=== PATIENT | female | born 1945 | race Caucasian/White ===

== ENCOUNTER 2016-09-28 16:19 | Emergency (ER) | payer OTHER ==
--- NOTE | 2016-09-28 17:00 | PROVIDER DOCUMENTATION ---
HPI-General Adult - General Chief Complaint: General Adult Stated Complaint: WEAKNESS/FALLING Time Seen by Provider: 09/28/16 16:53 Source: patient Allergies/Adverse Reactions: Patient Allergies Allergy/AdvReac Type Severity Reaction Status Date / Time codeine Allergy ANAPHYLAXIS Verified 08/17/15 23:41 hydromorphone HCl * Allergy ANAPHYLAXIS Verified 08/17/15 23:41 [From Dilaudid] Sulfa (Sulfonamide Allergy ANAPHYLAXIS Verified 08/17/15 23:41 Antibiotics) Home Medications: Home Medication List Medication Instructions Recorded Confirmed Last Taken Type Amitriptyline HCl 10 mg PO DAILY 08/18/15 09/28/16 09/27/16 History Ascorbate Calcium [Vitamin C] 500 mg PO DAILY 08/18/15 09/28/16 09/27/16 History Cyanocobalamin (Vitamin B-12) 5,000 mcg IV DIRECTED 08/18/15 09/28/16 History [B-12] Furosemide [Lasix] 80 mg PO DAILY 08/18/15 09/28/16 09/27/16 History Gabapentin 300 mg PO BID 08/18/15 09/28/16 09/27/16 History Levothyroxine [Synthroid] 50 microgm PO DAILY 08/18/15 09/28/16 09/27/16 History Lisinopril 20 mg PO DAILY 08/18/15 09/28/16 09/27/16 History Meloxicam [Mobic] 7.5 mg PO DAILY 08/18/15 09/28/16 09/27/16 History Methocarbamol [Robaxin] 500 mg pe PO BID 08/18/15 09/28/16 09/27/16 History Montelukast Sodium [Singulair] 10 mg PO DAILY 08/18/15 09/28/16 09/27/16 History Ondansetron HCl [Zofran] 4 mg PO DIRECTED 08/18/15 09/28/16 09/22/16 History Pravastatin Sodium 10 mg PO DAILY 08/18/15 09/28/16 09/27/16 History Propranolol HCl 40 mg PO DAILY 08/18/15 09/28/16 09/27/16 History Ranitidine HCl [Zantac 75] 150 mg PO DAILY 08/18/15 09/28/16 09/27/16 History Vitamin A 8,000 unit PO DAILY 08/18/15 09/28/16 09/27/16 History Cholecalciferol (Vit D3) [Vitamin 1,000 unit PO DAILY 09/28/16 09/28/16 History D3] Divalproex [Depakote] 250 mg PO DAILY 09/28/16 09/28/16 09/27/16 History Fenofibrate [Tricor] 48 mg PO QHS 09/28/16 09/28/16 09/27/16 History Hydrocodone/APAP 5 mg/325 mg 1 each PO TID 09/28/16 09/28/16 09/27/16 History [Crooks-5] Magnesium 200 mg PO DAILY 09/28/16 09/28/16 09/27/16 History Paroxetine HCl [Paxil] 30 mg PO DAILY 09/28/16 09/28/16 09/27/16 History Pramipexole Di-HCl [Mirapex] 0.125 mg PO QHS 09/28/16 09/28/16 09/27/16 History Ciprofloxacin HCl [Cipro] 500 mg PO BID #20 tablet 09/29/16 Unknown Rx - History of Present Illness -Gen Adult Nature of Presenting Problems: 71 y/o F c/o weakness x 1 day. States fell several times today. States fell on her butt, hit her head, and hurt her shoulders. Denies any dizziness. States floaters, double vision- has been going on for a couple of years. Denies any vomiting. States nauseated yesterday. States IVIG infusions for unknown illness from Dr. Monique for 16 months q 4 weeks. States GIRALDO in band like distribution today; has hx of migraines, and this feels similar. States mild shaking episodes; no hx of seizures. denies any LOC. Reports "episodes of weakness" in the past and 2-3 this week. Pt concerned she is on too many medications. Review of Systems - Adult - REVIEW OF SYSTEMS - ADULT Constitutional: reports: no symptoms reported. denies: chills, fever Eyes: reports: see HPI, double vision. denies: blurred vision Ears, Nose, Mouth & Throat: reports: no symptoms reported. denies: ear pain, nose pain Cardiovascular: reports: no symptoms reported. denies: chest pain, palpitations Respiratory: reports: no symptoms reported. denies: cough, shortness of breath Gastrointestinal: reports: see HPI, nausea. denies: abdominal pain, constipation, diarrhea, vomiting Genitourinary: reports: no symptoms reported. denies: dysuria, frequency Musculoskeletal: reports: no symptoms reported. denies: joint pain, joint swelling Integumentary: reports: no symptoms reported. denies: nail changes, rash Neurological: reports: see HPI, headache/migraines. denies: dizziness/vertigo, numbness, paresthesia, syncope Psychiatric: reports: no symptoms reported Endocrine: reports: no symptoms reported. denies: cold intolerance, heat intolerance Hematologic/Lymphatic: reports: no symptoms reported Allergic/Immunologic: reports: no symptoms reported All Other Systems: Reviewed and Negative Past History - Adult - PAST MEDICAL HISTORY-ADULT Review of Records: reports: Nursing Assessment Review, Medications Reviewed Major Childhood Illnesses: reports: denies history Cardiovascular: reports: denies history Genitourinary: reports: other (IG IV treatments) Musculoskeletal: reports: fibromyalgia Psychiatric: reports: depression Endocrine/Immune: reports: Diabetes - IMMUNIZATION STATUS Childhood Immunizations: See Nurse Assessment Flu Vaccine: See Nurse Assessment - SOCIAL HISTORY Smoking: denies Physical Exam-General - PHYSICAL EXAM-ADULT Initial Vital Signs Reviewed: Yes - CONSTITUTIONAL General Appearance: alert, mild distress - EYES Eyes: pink conjunctivae, other (false lens noted bilat eyes). negative: PERRL/ EOMI (pupillary defect of R eye; misshapen), EOM palsy (diffuculty with EOMIs) - HEAD, EARS, NOSE, MOUTH & THROAT HENMT: normocephalic/atraumatic - NECK Neck: supple, normal inspection, limited range of motion - RESPIRATORY Respiratory: lungs clear, normal breath sounds. negative: crackles, rales, rhonchi, stridor, wheezing - CARDIOVASCULAR Cardiovascular: regular rate, rhythm. negative: bradycardia, tachycardia - GASTROINTESTINAL (ABDOMEN) Abdominal Exam: normal bowel sounds, non tender, soft. negative: distended, guarding, rigid - MUSCULOSKELETAL Back Exam: normal inspection Extremity: normal capillary refill, tenderness (bilat trapezius). negative: normal gait (Pt unable to fully bear weight), abnormal NV exam, deformity, other (no tenderness noted to bilat shoulders) - SKIN Integumentary: normal color, normal turgor, warm/dry - NEUROLOGIC Neurologic: abnormal interventional nurse II-XII. negative: aphasia, facial droop, motor weakness, sensory deficit - PSYCHIATRIC Psych/Mental Status: normal mood/affect, normal thought content, normal thought process, oriented x 3 Progress - PLAN OF CARE/RESULTS Progress/Plan/Lab Results: Laboratory Tests 09/28/16 09/28/16 09/28/16 17:00 17:00 17:00 WBC 14.27 H RBC 3.69 L Hgb 11.6 L Hct 36.3 L MCV 98.4 MCH 31.4 H MCHC 32.0 L RDW Std Deviation 12.5 Plt Count 206 MPV 10.3 Immature Gran % (Auto) 0.1 Neut % (Auto) 85.2 H Lymph % (Auto) 9.1 L Polk % (Auto) 5.3 Eos % (Auto) 0.2 Baso % (Auto) 0.1 Immature Gran # (Auto) 0.02 Neut # (Auto) 12.14 H Lymph # (Auto) 1.30 Polk # (Auto) 0.76 H Eos # (Auto) 0.03 Baso # (Auto) 0.02 PT INR PTT (Actin FS) Specimen Type Sample Site pH pCO2 pO2 HCO3 Base Excess Oxyhemoglobin ABG O2 Sat (Calculated) ABG O2 Saturation ABG Carboxyhemoglobin ABG Methemoglobin Leonard Test A-a O2 Difference Total Hemoglobin Lactate Blood Gas Modality FiO2 % Sodium 140 Potassium 4.6 Chloride 104 Carbon Dioxide 21 L Anion Gap 15 BUN 39 H Creatinine 1.8 H Estimated GFR/1.73 m2 28 BUN/Creatinine Ratio 22 Glucose 153 H POC Glucose Calculated Osmolality 292 Calcium 8.9 Total Bilirubin 0.24 AST 24 ALT 17 Alkaline Phosphatase 61 Creatine Kinase 170 Troponin T Total Protein 6.7 Albumin 3.3 L Globulin 3.4 Albumin/Globulin Ratio 1.0 Urine Source Urine Color Urine Turbidity Urine pH Ur Specific Gustine Urine Protein Ur Glucose (Stick) Ur Ketones (Stick) Urine Blood Urine Nitrite Urine Bilirubin Urobilinogen Dipstick Urine Leukocytes Urine WBC (Auto) Urine RBC (Auto) U Epithel Cells (Auto) Urine Bacteria (Auto) Urine Crystals Small Round Cells Urine Casts Urine Yeast-like Cells Urine Opiates Screen Ur Oxycodone Screen Ur Methadone, Qual Ur Barbiturates Screen Ur Phencyclidine Scrn Ur Amphetamines Screen U Benzodiazepines Scrn Urine Cocaine Screen U Cannabinoids Screen Plasma/Serum Ethyl Alc 09/28/16 09/28/16 09/28/16 17:00 17:00 17:02 WBC RBC Hgb Hct MCV MCH MCHC RDW Std Deviation Plt Count MPV Immature Gran % (Auto) Neut % (Auto) Lymph % (Auto) Polk % (Auto) Eos % (Auto) Baso % (Auto) Immature Gran # (Auto) Neut # (Auto) Lymph # (Auto) Polk # (Auto) Eos # (Auto) Baso # (Auto) PT 10.7 INR 1.02 PTT (Actin FS) 30.1 Specimen Type Sample Site pH pCO2 pO2 HCO3 Base Excess Oxyhemoglobin ABG O2 Sat (Calculated) ABG O2 Saturation ABG Carboxyhemoglobin ABG Methemoglobin Leonard Test A-a O2 Difference Total Hemoglobin Lactate Blood Gas Modality FiO2 % Sodium Potassium Chloride Carbon Dioxide Anion Gap BUN Creatinine Estimated GFR/1.73 m2 BUN/Creatinine Ratio Glucose POC Glucose 160 H Calculated Osmolality Calcium Total Bilirubin AST ALT Alkaline Phosphatase Creatine Kinase Troponin T 0.010 Total Protein Albumin Globulin Albumin/Globulin Ratio Urine Source Urine Color Urine Turbidity Urine pH Ur Specific Gustine Urine Protein Ur Glucose (Stick) Ur Ketones (Stick) Urine Blood Urine Nitrite Urine Bilirubin Urobilinogen Dipstick Urine Leukocytes Urine WBC (Auto) Urine RBC (Auto) U Epithel Cells (Auto) Urine Bacteria (Auto) Urine Crystals Small Round Cells Urine Casts Urine Yeast-like Cells Urine Opiates Screen Ur Oxycodone Screen Ur Methadone, Qual Ur Barbiturates Screen Ur Phencyclidine Scrn Ur Amphetamines Screen U Benzodiazepines Scrn Urine Cocaine Screen U Cannabinoids Screen Plasma/Serum Ethyl Alc 09/28/16 09/29/16 09/29/16 20:28 00:05 00:05 WBC RBC Hgb Hct MCV MCH MCHC RDW Std Deviation Plt Count MPV Immature Gran % (Auto) Neut % (Auto) Lymph % (Auto) Polk % (Auto) Eos % (Auto) Baso % (Auto) Immature Gran # (Auto) Neut # (Auto) Lymph # (Auto) Polk # (Auto) Eos # (Auto) Baso # (Auto) PT INR PTT (Actin FS) Specimen Type ARTERIAL Sample Site R RADIAL pH 7.42 pCO2 38 pO2 56 L HCO3 24.9 Base Excess 0.2 Oxyhemoglobin 90.7 L ABG O2 Sat (Calculated) 14.8 L ABG O2 Saturation 94.2 L ABG Carboxyhemoglobin 2.00 ABG Methemoglobin 1.7 H Leonard Test YES A-a O2 Difference 46.0 Total Hemoglobin 11.6 Lactate 1.80 Blood Gas Modality ROOM AIR FiO2 % 21.0 Sodium Potassium Chloride Carbon Dioxide Anion Gap BUN Creatinine Estimated GFR/1.73 m2 BUN/Creatinine Ratio Glucose POC Glucose Calculated Osmolality Calcium Total Bilirubin AST ALT Alkaline Phosphatase Creatine Kinase Troponin T Total Protein Albumin Globulin Albumin/Globulin Ratio Urine Source CATH Urine Color YELLOW Urine Turbidity CLEAR Urine pH 5.5 Ur Specific Gustine 1.020 Urine Protein NEGATIVE Ur Glucose (Stick) NEGATIVE Ur Ketones (Stick) NEGATIVE Urine Blood NEGATIVE Urine Nitrite NEGATIVE Urine Bilirubin NEGATIVE Urobilinogen Dipstick NORMAL Urine Leukocytes NEGATIVE Urine WBC (Auto) <10 Urine RBC (Auto) <10 U Epithel Cells (Auto) <10 Urine Bacteria (Auto) NEGATIVE Urine Crystals NONE SEEN Small Round Cells NONE SEEN Urine Casts NONE SEEN Urine Yeast-like Cells PRESENT Urine Opiates Screen PRESUMPTIVE POSITIVE A Ur Oxycodone Screen NONE DETECTED Ur Methadone, Qual NONE DETECTED Ur Barbiturates Screen NONE DETECTED Ur Phencyclidine Scrn NONE DETECTED Ur Amphetamines Screen NONE DETECTED U Benzodiazepines Scrn NONE DETECTED Urine Cocaine Screen NONE DETECTED U Cannabinoids Screen NONE DETECTED Plasma/Serum Ethyl Alc Orders Category Date Time Status Cardiac Monitoring DIRECTED Care 09/28/16 16:49 Active Finger Stick Blood Sugar (ED) DIRECTED Care 09/28/16 16:49 Active Oxygen Therapy- ED Nursing DIRECTED Care 09/28/16 16:49 Active Saline Loc NOW Care 09/28/16 16:49 Active ABDOMEN/PELVIS W/O CONTRAST [CT] Stat Exams 09/29/16 01:10 Taken CHEST-2 VIEWS [RAD] Stat Exams 09/29/16 01:10 Taken HEAD/C-SPINE W/O CONTRAST [CT] Stat Exams 09/28/16 17:08 Draft ABG [RESP] Routine Lab 09/28/16 20:28 Completed ALCOHOL BLOOD Stat Lab 09/28/16 17:00 Completed CBC WITH ELECTRONIC DIFF [HEME] Stat Lab 09/28/16 17:00 Completed CK PROFILE [SP CHEM] Stat Lab 09/28/16 17:00 Completed COMPREHENSIVE METABOLIC PANEL [CHEM] Stat Lab 09/28/16 17:00 Completed PROTIME WITH INR [COAG] Stat Lab 09/28/16 17:00 Completed PTT [COAG] Stat Lab 09/28/16 17:00 Completed TROPONIN T Stat Lab 09/28/16 17:00 Completed URINALYSIS W/POSS RFLX CULT [URINALYSIS] Stat Lab 09/29/16 00:05 Results URINE DRUG SCREEN Stat Lab 09/29/16 00:05 Completed URINE MANUAL MICROSCOPIC [URINALYSIS] Stat Lab 09/29/16 00:05 Results 0.9% Sodium Chloride Inj [Ns] 1,000 ml Med 09/29/16 01:09 Active IV 999 mls/hr Levofloxacin 750 mg/D5w [Levaquin 750 mg/D5w] 150 ml Med 09/29/16 02:06 Active IV NOW Pulse Oximetry Stat Oth 09/28/16 16:49 Active EKG [EKG] Stat Ther 09/28/16 16:49 Ordered Vital Signs Temp Pulse Resp BP Pulse Ox 09/28/16 21:56 89 20 102/52 97 09/28/16 20:55 90 19 105/58 97 09/28/16 18:00 91 H 18 133/81 95 09/28/16 16:40 98.8 F 102 H 18 123/51 95 codeine Allergy (Verified 08/17/15 23:41) ANAPHYLAXIS hydromorphone HCl * [From Dilaudid] Allergy (Verified 08/17/15 23:41) ANAPHYLAXIS Sulfa (Sulfonamide Antibiotics) Allergy (Verified 08/17/15 23:41) ANAPHYLAXIS Amitriptyline HCl 10 mg PO DAILY 08/18/15 Ascorbate Calcium [Vitamin C] 500 mg PO DAILY 08/18/15 Cyanocobalamin (Vitamin B-12) [B-12] 5,000 mcg IV DIRECTED 08/18/15 Furosemide [Lasix] 80 mg PO DAILY 08/18/15 Gabapentin 300 mg PO BID 08/18/15 Levothyroxine [Synthroid] 50 microgm PO DAILY 08/18/15 Lisinopril 20 mg PO DAILY 08/18/15 Meloxicam [Mobic] 7.5 mg PO DAILY 08/18/15 Methocarbamol [Robaxin] 500 mg pe PO BID 08/18/15 Montelukast Sodium [Singulair] 10 mg PO DAILY 08/18/15 Ondansetron HCl [Zofran] 4 mg PO DIRECTED 08/18/15 Pravastatin Sodium 10 mg PO DAILY 08/18/15 Propranolol HCl 40 mg PO DAILY 08/18/15 Ranitidine HCl [Zantac 75] 150 mg PO DAILY 08/18/15 Vitamin A 8,000 unit PO DAILY 08/18/15 Cholecalciferol (Vit D3) [Vitamin D3] 1,000 unit PO DAILY 09/28/16 Divalproex [Depakote] 250 mg PO DAILY 09/28/16 Fenofibrate [Tricor] 48 mg PO QHS 09/28/16 Hydrocodone/APAP 5 mg/325 mg [Crooks-5] 1 each PO TID 09/28/16 Magnesium 200 mg PO DAILY 09/28/16 Paroxetine HCl [Paxil] 30 mg PO DAILY 09/28/16 Pramipexole Di-HCl [Mirapex] 0.125 mg PO QHS 09/28/16 Ciprofloxacin HCl [Cipro] 500 mg PO BID #20 tablet 09/29/16 Laboratory 09/29/16 09/29/16 09/28/16 00:05 00:05 20:28 WBC RBC Hgb Hct MCV MCH MCHC RDW Std Deviation Plt Count MPV Immature Gran % (Auto) Neut % (Auto) Lymph % (Auto) Polk % (Auto) Eos % (Auto) Baso % (Auto) Immature Gran # (Auto) Neut # (Auto) Lymph # (Auto) Polk # (Auto) Eos # (Auto) Baso # (Auto) PT INR PTT (Actin FS) Specimen Type ARTERIAL Sample Site R RADIAL pH 7.42 pCO2 38 pO2 56 L HCO3 24.9 Base Excess 0.2 Oxyhemoglobin 90.7 L ABG O2 Sat (Calculated) 14.8 L ABG O2 Saturation 94.2 L ABG Carboxyhemoglobin 2.00 ABG Methemoglobin 1.7 H Leonard Test YES A-a O2 Difference 46.0 Total Hemoglobin 11.6 Lactate 1.80 Blood Gas Modality ROOM AIR FiO2 % 21.0 Sodium Potassium Chloride Carbon Dioxide Anion Gap BUN Creatinine Estimated GFR/1.73 m2 BUN/Creatinine Ratio Glucose POC Glucose Calculated Osmolality Calcium Total Bilirubin AST ALT Alkaline Phosphatase Creatine Kinase Troponin T Total Protein Albumin Globulin Albumin/Globulin Ratio Urine Source CATH Urine Color YELLOW Urine Turbidity CLEAR Urine pH 5.5 Ur Specific Gustine 1.020 Urine Protein NEGATIVE Ur Glucose (Stick) NEGATIVE Ur Ketones (Stick) NEGATIVE Urine Blood NEGATIVE Urine Nitrite NEGATIVE Urine Bilirubin NEGATIVE Urobilinogen Dipstick NORMAL Urine Leukocytes NEGATIVE Urine WBC (Auto) <10 Urine RBC (Auto) <10 U Epithel Cells (Auto) <10 Urine Bacteria (Auto) NEGATIVE Urine Crystals NONE SEEN Small Round Cells NONE SEEN Urine Casts NONE SEEN Urine Yeast-like Cells PRESENT Urine Opiates Screen PRESUMPTIVE POSITIVE A Ur Oxycodone Screen NONE DETECTED Ur Methadone, Qual NONE DETECTED Ur Barbiturates Screen NONE DETECTED Ur Phencyclidine Scrn NONE DETECTED Ur Amphetamines Screen NONE DETECTED U Benzodiazepines Scrn NONE DETECTED Urine Cocaine Screen NONE DETECTED U Cannabinoids Screen NONE DETECTED Plasma/Serum Ethyl Alc 09/28/16 09/28/16 09/28/16 17:02 17:00 17:00 WBC RBC Hgb Hct MCV MCH MCHC RDW Std Deviation Plt Count MPV Immature Gran % (Auto) Neut % (Auto) Lymph % (Auto) Polk % (Auto) Eos % (Auto) Baso % (Auto) Immature Gran # (Auto) Neut # (Auto) Lymph # (Auto) Polk # (Auto) Eos # (Auto) Baso # (Auto) PT 10.7 INR 1.02 PTT (Actin FS) 30.1 Specimen Type Sample Site pH pCO2 pO2 HCO3 Base Excess Oxyhemoglobin ABG O2 Sat (Calculated) ABG O2 Saturation ABG Carboxyhemoglobin ABG Methemoglobin Leonard Test A-a O2 Difference Total Hemoglobin Lactate Blood Gas Modality FiO2 % Sodium Potassium Chloride Carbon Dioxide Anion Gap BUN Creatinine Estimated GFR/1.73 m2 BUN/Creatinine Ratio Glucose POC Glucose 160 H Calculated Osmolality Calcium Total Bilirubin AST ALT Alkaline Phosphatase Creatine Kinase Troponin T 0.010 Total Protein Albumin Globulin Albumin/Globulin Ratio Urine Source Urine Color Urine Turbidity Urine pH Ur Specific Gustine Urine Protein Ur Glucose (Stick) Ur Ketones (Stick) Urine Blood Urine Nitrite Urine Bilirubin Urobilinogen Dipstick Urine Leukocytes Urine WBC (Auto) Urine RBC (Auto) U Epithel Cells (Auto) Urine Bacteria (Auto) Urine Crystals Small Round Cells Urine Casts Urine Yeast-like Cells Urine Opiates Screen Ur Oxycodone Screen Ur Methadone, Qual Ur Barbiturates Screen Ur Phencyclidine Scrn Ur Amphetamines Screen U Benzodiazepines Scrn Urine Cocaine Screen U Cannabinoids Screen Plasma/Serum Ethyl Alc 09/28/16 09/28/16 09/28/16 17:00 17:00 17:00 WBC 14.27 H RBC 3.69 L Hgb 11.6 L Hct 36.3 L MCV 98.4 MCH 31.4 H MCHC 32.0 L RDW Std Deviation 12.5 Plt Count 206 MPV 10.3 Immature Gran % (Auto) 0.1 Neut % (Auto) 85.2 H Lymph % (Auto) 9.1 L Polk % (Auto) 5.3 Eos % (Auto) 0.2 Baso % (Auto) 0.1 Immature Gran # (Auto) 0.02 Neut # (Auto) 12.14 H Lymph # (Auto) 1.30 Polk # (Auto) 0.76 H Eos # (Auto) 0.03 Baso # (Auto) 0.02 PT INR PTT (Actin FS) Specimen Type Sample Site pH pCO2 pO2 HCO3 Base Excess Oxyhemoglobin ABG O2 Sat (Calculated) ABG O2 Saturation ABG Carboxyhemoglobin ABG Methemoglobin Leonard Test A-a O2 Difference Total Hemoglobin Lactate Blood Gas Modality FiO2 % Sodium 140 Potassium 4.6 Chloride 104 Carbon Dioxide 21 L Anion Gap 15 BUN 39 H Creatinine 1.8 H Estimated GFR/1.73 m2 28 BUN/Creatinine Ratio 22 Glucose 153 H POC Glucose Calculated Osmolality 292 Calcium 8.9 Total Bilirubin 0.24 AST 24 ALT 17 Alkaline Phosphatase 61 Creatine Kinase 170 Troponin T Total Protein 6.7 Albumin 3.3 L Globulin 3.4 Albumin/Globulin Ratio 1.0 Urine Source Urine Color Urine Turbidity Urine pH Ur Specific Gustine Urine Protein Ur Glucose (Stick) Ur Ketones (Stick) Urine Blood Urine Nitrite Urine Bilirubin Urobilinogen Dipstick Urine Leukocytes Urine WBC (Auto) Urine RBC (Auto) U Epithel Cells (Auto) Urine Bacteria (Auto) Urine Crystals Small Round Cells Urine Casts Urine Yeast-like Cells Urine Opiates Screen Ur Oxycodone Screen Ur Methadone, Qual Ur Barbiturates Screen Ur Phencyclidine Scrn Ur Amphetamines Screen U Benzodiazepines Scrn Urine Cocaine Screen U Cannabinoids Screen Plasma/Serum Ethyl Alc Discussed pt with Dr. Ibarra; he agrees with daignosis and d/c home. Discussed with pt, including f/u with PCP for further evaluation. - XRAY 1 XRAY Study: Chest XRAY Interpretation: infiltrate, LLL - CT/MRI 1 CT Study: Cervical Spine, Head Impression: See EMR Report (Head: No acute disease or change from prior. Cspine : Cervical spondylosis. No acute disease or change from prior. -per Dr. Ramírez) 2 CT Study: Abdomen, Pelvis Impression: See EMR Report (1. Patchy opacities in the lower lobes. Infection not excluded. 2. Previous left inferior pole exophytic renal cyst now appears isodense to renal parenchyma and partially collapsed. This lesion is technically indeterminate. 3. Moderate stool. -per Dr. Bateman ([facility])) Departure - Departure Time of Disposition Order: 02:02 DIAGNOSIS: Infiltrate of lung present on imaging of chest, Weakness, Renal cyst Falls Qualifiers: Encounter type: initial encounter Qualified Code(s): W19.XXXA - Unspecified fall, initial encounter Constipation Qualifiers: Constipation type: unspecified constipation type Qualified Code(s): K59.00 - Constipation, unspecified Disposition: HOME 01 Certified Medical Emergency: Emergent Condition: Stable Additional Instructions: Take medications as directed. Follow up with PCP for further evaluation. Return if symptoms get worse. ED Follow Up Instructions: You have been treated by a care provider in the Emergency Department. These instructions are being provided to you so you can have an understanding of how to care for yourself upon discharge. Upon discharge from the Emergency Department, you are responsible for making arrangements for follow-up care by a physician of your choice. Take all prescribed medications as directed. Return to the Emergency Department immediately for any new or worsening symptoms. You may call the Physician Referral phone number at [phone] to obtain a list of Physicians who are taking new patients. Prescriptions: Ciprofloxacin HCl [Cipro] 500 mg PO BID #20 tablet Referrals: Patsy Morejon MD [Primary Care Provider] - Attestation - Physician/ EVELIO Attestation Patient care was provided by Advanced Practice Provider:: Yes Advanced Practice Provider:: Isatu Magallanes Advanced Practice Provider documentation review:: The Mid-level provider documentation, treatment plan and medical decision making was reviewed by the physician who agrees with all treatment and medical decision making by the MLP.
--- NOTE | 2016-09-28 17:19 | ED EKG INTERP ---
EKG Interpretation - EKG Time of EKG reading by physician:: 17:05 EKG Read and Signed by:: Jonh Newton EKG Interpretation (*Must complete 3 of following elements*): Abnormal Rate: 99 Rhythm: NSR [place]: normal QRS: other (low voltage QRS) ST Wave: non-specific ST changes Attestation - Scribe Verification/Attestation Scribe:: Miko Soliman Acting as Scribe for:: Jonh Newton Scribe documention review:: This chart was documented by a scribe and accurately reflects the service the provider performed and the decisions made by the provider. Physician Attestation - Physician Attestation I, the provider, attest to the following statement:: Jonh Newton Physician documentation Attestation:: This documentation recorded by the scribe accurately reflects the service I personally performed and the decisions made by me.
[2016-09-28 17:22] LABS: BASO% 0.1 % (0.0-0.8); EOS# 0.03 X1000 (0.0-0.7); EOS% 0.2 % (0.0-10.0); HEMATOCRIT 36.3 % (37.0-47.0); HEMOGLOBIN 11.6 g/dL (12.0-16.0); IMM GRAN# 0.02 X1000 (0.0-0.04); IMM GRAN% 0.1 % (0.0-0.5); LYMPH% 9.1 % (20.5-51.1); MANUAL DIFF NEEDED? NO; MCH 31.4 PG (27-31); MCV 98.4 FL (81-99); MONO# 0.76 X1000 (0.11-0.59); MONO% 5.3 % (1.7-9.3); MPV 10.3 FL (7.4-10.4); NEUT% 85.2 % (42.2-75.2); PLT 206 X1000 (130-400); RBC 3.69 XMIL (4.2-5.4)
[2016-09-28 17:24] LABS: INR 1.02; PROTIME 10.7 Seconds (9.2-11.7); PTT 30.1 Seconds (22.0-36.0)
[2016-09-28 17:35] LABS: ALBUMIN 3.3 g/dL (3.5-5.0); CALCIUM 8.9 mg/dL (8.8-10.2); POTASSIUM 4.6 mmol/L (3.5-5.1); TOTAL BILIRUBIN 0.24 mg/dL (0.20-1.00); TOTAL PROTEIN 6.7 g/dL (6.3-8.3)
--- NOTE | 2016-09-28 17:56 | Diag Imaging Result Document ---
PROCEDURE NAME: HEAD/C-SPINE W/O CONTRAST - 09/28/[address]: COMPARISON: 02/27/2016. FINDINGS: Stable generalized cerebral atrophy. No intracranial mass or hemorrhage. The skull is intact. The sinuses, mastoids, and middle ears are clear. IMPRESSION: No acute disease or change from prior. CT CERVICAL SPINE: COMPARISON: 02/27/2016. FINDINGS: Alignment is anatomic. No fracture or subluxation. Stable moderate, multilevel degenerative disk and facet disease. IMPRESSION: Cervical spondylosis. No acute disease or change from prior.
[2016-09-28 20:32] LABS: BLOOD TYPE ARTERIAL; SAMPLE BLOOD
[2016-09-28 20:33] LABS: ALLEN TEST YES; BE 0.2 mmoll (-3.0-3.0); DRAW SITE R RADIAL; METHB 1.7 % (0.0-1.5); O2(CT) 14.8 mL/dL (15.0-23.0); PCO2(98.6) 38 mmHg (35-45); PO2(98.6) 56 mmHg (60-100); SAO2 94.2 % (95.0-100.0); THB 11.6 g/dL (11.5-17.4); pH(98.6) 7.42 (7.35-7.45)
[2016-09-28 20:38] LABS: MODALITY ROOM AIR
[2016-09-29 00:23] LABS: URINE CULTURE NEEDED? NO; URINE SOURCE CATH
[2016-09-29 00:31] LABS: BILIRUBIN URINE NEGATIVE (NEGATIVE); BLOOD URINE NEGATIVE (NEGATIVE); COLOR YELLOW; GLUCOSE URINE NEGATIVE (NEGATIVE); LEUKOCYTES URINE NEGATIVE (NEGATIVE); NITRITE URINE NEGATIVE (NEGATIVE); PH URINE 5.5; PROTEIN URINE NEGATIVE (NEGATIVE); TURBIDITY URINE CLEAR (CLEAR); URINE MICRO REVIEW NEEDED? YES; UROBILINOGEN URINE NORMAL (NORMAL)
[2016-09-29 00:43] LABS: UR AMPHETAMINES QUAL NONE DETECTED (NONE DETECT); UR BARBITUATES QUAL NONE DETECTED (NONE DETECT); UR BENZODIAZEPIN QUAL NONE DETECTED (NONE DETECT); UR CANNABINOIDS QUAL NONE DETECTED (NONE DETECT); UR COCAINE QUAL NONE DETECTED (NONE DETECT); UR EPITHELIAL CELLS <10 /HPF (<10); UR METHADONE QUAL NONE DETECTED (NONE DETECT); UR OPIATES QUAL PRESUMPTIVE POSITIVE (NONE DETECT); UR OXYCODONE QUAL NONE DETECTED (NONE DETECT); UR PCP QUAL NONE DETECTED (NONE DETECT); URINE BACTERIA NEGATIVE /HPF; URINE RBC <10 /HPF (<10); URINE WBC <10 /HPF (<10)
[2016-09-29] MEDS ORDERED: NS 1,000 ML IV ONE (01:09)
[2016-09-29 01:35] LABS: URINE CASTS NONE SEEN; URINE CRYSTALS NONE SEEN; URINE SMALL ROUND CELLS NONE SEEN
[2016-09-29] MEDS ORDERED: LEVAQUIN 750 MG/D5W 150 ML IV ONE (02:06)
[2016-09-29] MEDS ORDERED: ROCEPHIN 1 GM/NS 50 ML IV ONE (02:25)
[2016-09-29 03:09] VITALS: BP 111/61
--- NOTE | 2016-09-29 05:23 | EKG Report ---
Test Performed on : 09/28/2016 4:55:30 PM Test Reason : AMS Blood Pressure : / mmHG Vent. Rate : 099 BPM Atrial Rate : 099 BPM P-R Int : 194 ms QRS Dur : 078 ms QT Int : 340 ms P-R-T Axes : 039 -03 036 degrees QTc Int : 436 ms Normal sinus rhythm. Low voltage QRS Cannot rule out Inferior infarct , age undetermined Abnormal ECG When compared with ECG of 20-OCT-2013 10:18, Vent. rate has increased BY 43 BPM T wave amplitude has decreased in Anterior leads Unconfirmed Result
--- NOTE | 2016-09-29 08:20 | Diag Imaging Result Document ---
PROCEDURE NAME: CHEST-2 VIEWS - 09/29/2016 SITTING AP AND LATERAL CHEST, TWO VIEWS: COMPARISON: 07/10/2015. FINDINGS: No change in the right-sided Port-A-Cath. No pneumothorax. The heart is not enlarged. The vessels are not distended. There are no infiltrates. No pleural effusions. IMPRESSION: No pneumonia.
--- NOTE | 2016-09-29 08:25 | Diag Imaging Result Document ---
PROCEDURE NAME: ABDOMEN/PELVIS W/O CONTRAST - 09/29/2016 CT UROGRAM WITHOUT CONTRAST: FINDINGS: There are patchy alveolar opacities in both lower lobes which were not present at the time of the previous study of 10/16/2014. There is a pleural-based nodule present in the left lower lobe on image 10 measuring almost 9 mm in diameter. This was present on image 8 of the previous study. It had at that time measured less than 5 mm in diameter. There is a fairly large hiatal hernia. There is no evidence of significant adenopathy. The spleen and adrenal glands are not enlarged. There is no evidence of hydronephrosis or nephrolithiasis. There is an exophytic lesion arising from the lateral slightly lower pole left renal cortex with a CT density of 24 Hounsfield units measuring 2 cm in greatest dimension, which apparently has decreased in short axis dimension since the previous study of 10/16/2014. This may have been ablated since the previous study. There is a moderate amount of stool throughout the colon. Small bowel is not distended. There has been cholecystectomy. The appendix is not distended or inflamed in appearance. There has been hysterectomy. There is a Bateman catheter in the bladder which is completely empty. There is no evidence of free pelvic fluid. There is degenerative disk disease and facet arthropathy with vacuum disk phenomenon at L5-S1. Severe degenerative disk changes are seen in the lower thoracic spine particularly at T7-8 and 8-9. This area was not included on the previous study. IMPRESSION: 1. Bronchopneumonia. Enlarging left lower lobe pleural-based nodule. 2. Left renal exophytic lesion possibly at a previously ablated cyst. Correlation with the patient's history is recommended. 3. Constipation.
== END 2016-09-29 03:10 | disposition home or self-care (01) ==
LOC: ED 16:19
DX: R53.1 Weakness (principal); K59.00 Constipation, unspecified; N28.1 Cyst of kidney, acquired; R91.8 Other nonspecific abnormal finding of lung field; J18.0 Bronchopneumonia, unspecified organism; R94.31 Abnormal electrocardiogram [ECG] [EKG]; M25.512 Pain in left shoulder; M25.511 Pain in right shoulder; Z79.899 Other long term (current) drug therapy; H43.399 Other vitreous opacities, unspecified eye; H53.2 Diplopia; R11.0 Nausea; R51 Headache; G25.89 Other specified extrapyramidal and movement disorders; M79.7 Fibromyalgia; E11.9 Type 2 diabetes mellitus without complications; F32.9 Major depressive disorder, single episode, unspecified; W19.XXXA Unspecified fall, initial encounter
CPT/HCPCS: 36415; 70450; 71020; 72125; 74176; 80053; 81001; 82550; 82805; 82948; 84484; 85025; 85610; 85730; 93005; 96365; G0480; J0696; J7030; 80320; 80324; 80345; 80346; 80349; 80353; 80358; 80361; 80365; 83992

== ENCOUNTER 2017-01-26 16:10 | Inpatient (IN) ==
[2017-01-26 18:10] LABS: MANUAL DIFF NEEDED? NO
[2017-01-26 18:14] LABS: BASO% 0.4 % (0.0-0.8); EOS# 0.17 X1000 (0.0-0.7); EOS% 1.9 % (0.0-10.0); HEMOGLOBIN 11.1 g/dL (12.0-16.0); IMM GRAN# 0.07 X1000 (0.0-0.04); IMM GRAN% 0.8 % (0.0-0.5); LYMPH# 2.65 X1000 (1.2-3.4); LYMPH% 28.9 % (20.5-51.1); MCH 31.1 PG (27-31); MCHC 31.7 g/dL (33-37); MONO# 0.92 X1000 (0.11-0.59); PLT 271 X1000 (130-400); RBC 3.57 XMIL (4.2-5.4)
[2017-01-26 18:23] LABS: INR 1.02; PROTIME 10.7 Seconds (9.2-11.7)
[2017-01-26 19:00] LABS: CALCIUM 9.4 mg/dL (8.8-10.2); MAGNESIUM 3.1 mg/dL (1.5-2.7); POTASSIUM 4.6 mmol/L (3.5-5.1); TOTAL BILIRUBIN 0.27 mg/dL (0.20-1.00); TOTAL PROTEIN 7.2 g/dL (6.3-8.3)
[2017-01-26] MEDS ORDERED: NS 1,000 ML IV ONE (19:15)
--- NOTE | 2017-01-26 19:20 | Diag Imaging Result Doc PS360 ---
EXAM: CHEST-2 VIEWS INDICATION: CP TECHNIQUE: 2 views COMPARISON: 10/19/2016 FINDINGS: Right chest port is in stable position. There is minimal linear scarring at the periphery of the left midlung zone, stable. Inspiration is suboptimal. The lungs are grossly clear, otherwise. There is no discrete pleural fluid collection or pneumothorax. The cardiomediastinal silhouette and central vasculature are grossly unremarkable. IMPRESSION: Stable minimal focal scarring at the periphery of the left midlung zone. No definite acute pathology. Electronically signed by Tej Stearns 01/26/2017 7:18 PM
[2017-01-26] MEDS ORDERED: NS 500 ML IV ONE (19:29)
--- NOTE | 2017-01-26 19:33 | PROVIDER DOCUMENTATION ---
This chart was entered by Alvino Pelaez Scribe, acting as scribe for Dottie Whitehead MD. HPI-General Adult - General Chief Complaint: B/P Problems Stated Complaint: HIGH BP Time Seen by Provider: 01/26/17 16:21 Source: patient Allergies/Adverse Reactions: Patient Allergies Allergy/AdvReac Type Severity Reaction Status Date / Time codeine Allergy ANAPHYLAXIS Verified 08/17/15 23:41 hydromorphone HCl * Allergy ANAPHYLAXIS Verified 08/17/15 23:41 [From Dilaudid] Sulfa (Sulfonamide Allergy ANAPHYLAXIS Verified 08/17/15 23:41 Antibiotics) Home Medications: Home Medication List Medication Instructions Recorded Confirmed Last Taken Type Amitriptyline HCl 10 mg PO DAILY 08/18/15 09/28/16 09/27/16 History Ascorbate Calcium [Vitamin C] 500 mg PO DAILY 08/18/15 09/28/16 09/27/16 History Cyanocobalamin (Vitamin B-12) 5,000 mcg IV DIRECTED 08/18/15 09/28/16 History [B-12] Furosemide [Lasix] 80 mg PO DAILY 08/18/15 09/28/16 09/27/16 History Gabapentin 300 mg PO BID 08/18/15 09/28/16 09/27/16 History Levothyroxine [Synthroid] 50 microgm PO DAILY 08/18/15 09/28/16 09/27/16 History Lisinopril 20 mg PO DAILY 08/18/15 09/28/16 09/27/16 History Meloxicam [Mobic] 7.5 mg PO DAILY 08/18/15 09/28/16 09/27/16 History Methocarbamol [Robaxin] 500 mg pe PO BID 08/18/15 09/28/16 09/27/16 History Montelukast Sodium [Singulair] 10 mg PO DAILY 08/18/15 09/28/16 09/27/16 History Ondansetron HCl [Zofran] 4 mg PO DIRECTED 08/18/15 09/28/16 09/22/16 History Pravastatin Sodium 10 mg PO DAILY 08/18/15 09/28/16 09/27/16 History Propranolol HCl 40 mg PO DAILY 08/18/15 09/28/16 09/27/16 History Ranitidine HCl [Zantac 75] 150 mg PO DAILY 08/18/15 09/28/16 09/27/16 History Vitamin A 8,000 unit PO DAILY 08/18/15 09/28/16 09/27/16 History Cholecalciferol (Vit D3) [Vitamin 1,000 unit PO DAILY 09/28/16 09/28/16 History D3] Divalproex [Depakote] 250 mg PO DAILY 09/28/16 09/28/16 09/27/16 History Fenofibrate [Tricor] 48 mg PO QHS 09/28/16 09/28/16 09/27/16 History Hydrocodone/APAP 5 mg/325 mg 1 each PO TID 09/28/16 09/28/16 09/27/16 History [[place]-5] Magnesium 200 mg PO DAILY 09/28/16 09/28/16 09/27/16 History Paroxetine HCl [Paxil] 30 mg PO DAILY 09/28/16 09/28/16 09/27/16 History Pramipexole Di-HCl [Mirapex] 0.125 mg PO QHS 09/28/16 09/28/16 09/27/16 History Amoxicillin/Pot Clavulanate 875 mg PO Q12HR #20 tablet 09/29/16 Unknown Rx [Augmentin] - History of Present Illness -Gen Adult Nature of Presenting Problems: Pt is a 71 y/o F that presents to the ER due to high BP. pt also reports she has been feeling weak the last few days. Went to her PCP, Dr. Morejon, wanting a different prescription to help with her feelings of weakness. While there her PCP ran an EKG on her and checked her BP. BP was high and EKG was abnormal, so PCP sent pt to ER for an eval. BP is now 114/66. Patient has no new complaints. Denies any chest pain. Pt is on 4 different medications for BP, which may be related to how current problems. Location of Pain/Injury: reports: none (no pain. presents to ER due to high BP and feeling weak) Pain Radiation: reports: no radiation Quality of Pain: reports: none Severity: reports: mild Onset/Duration: reports: abrupt, 4-6 hours ago Timing: reports: still present Context/Activities at Onset: denies: out of country travel Modifying Factors: improves with: other medication. worse with: vomiting Associated Symptoms: reports: dizziness, shortness of breath (pt complains of slight SOB). denies: diaphoresis, diarrhea, nausea, vomiting Similar Symptoms Previously?: No Recently seen or treated by another doctor?: Yes (pt saw pcp today and she referred her to ER) - Sickle Cell Pain Related Context Sickle Cell Pain Location: reports: none Review of Systems - Adult - REVIEW OF SYSTEMS - ADULT Constitutional: denies: chills, fever Eyes: denies: decreased vision, blurred vision, double vision Ears, Nose, Mouth & Throat: denies: ear pain, throat pain Cardiovascular: denies: chest pain, palpitations Respiratory: reports: shortness of breath (pt reports mild SOB). denies: cough Gastrointestinal: denies: abdominal pain, diarrhea, nausea, vomiting Genitourinary: reports: no symptoms reported Musculoskeletal: denies: back pain, neck pain Integumentary: reports: no symptoms reported Neurological: reports: dizziness/vertigo (pt reports being dizzy this AM), loss of balance. denies: seizure Psychiatric: reports: no symptoms reported Endocrine: reports: no symptoms reported Hematologic/Lymphatic: reports: no symptoms reported Allergic/Immunologic: reports: no symptoms reported All Other Systems: Reviewed and Negative Past History - Adult - PAST MEDICAL HISTORY-ADULT Review of Records: reports: Old Records Reviewed, Nursing Assessment Review, Medications Reviewed Major Childhood Illnesses: reports: denies history Cardiovascular: reports: HTN, hyperlipidemia Gastrointestinal: reports: GERD Genitourinary: reports: other (IG IV treatments) Musculoskeletal: reports: fibromyalgia Psychiatric: reports: depression Endocrine/Immune: reports: Diabetes - PRIOR SURGERIES/PROCEDURES Surgical/Procedure History: reports: cholecystectomy, tonsillectomy - IMMUNIZATION STATUS Childhood Immunizations: See Nurse Assessment Flu Vaccine: See Nurse Assessment - FAMILY HISTORY Family History: reviewed, not pertinent - SOCIAL HISTORY Smoking: non-smoker Substance Use: none/never Alcohol Use Frequency: never Living Situation: family Physical Exam-General - PHYSICAL EXAM-ADULT Initial Vital Signs Reviewed: Yes - CONSTITUTIONAL General Appearance: alert, no apparent distress - EYES Eyes: PERRL/EOMI, pink conjunctivae - HEAD, EARS, NOSE, MOUTH & THROAT HENMT: moist mucous membranes, normal ENT inspection - NECK Neck: non-tender, full range of motion - RESPIRATORY Respiratory: lungs clear, normal breath sounds - CARDIOVASCULAR Cardiovascular: regular rate, rhythm - GASTROINTESTINAL (ABDOMEN) Abdominal Exam: non tender, soft - MUSCULOSKELETAL Back Exam: normal inspection Extremity: normal range of motion - SKIN Integumentary: normal color, warm/dry - NEUROLOGIC Neurologic: grossly normal - PSYCHIATRIC Psych/Mental Status: normal mood/affect, normal thought content, normal thought process, oriented x 3 Progress - PLAN OF CARE/RESULTS Progress/Plan/Lab Results: Vital Signs - 8 hr 01/26/17 16:28 Temperature 97.5 F L Pulse Rate 63 Respiratory Rate 19 Blood Pressure 114/66 O2 Sat by Pulse Oximetry 100 Orders Category Date Time Status Cardiac Monitoring DIRECTED Care 01/26/17 16:21 Active Saline Loc NOW Care 01/26/17 16:21 Active CHEST-2 VIEWS [RAD] Stat Exams 01/26/17 16:21 Ordered CBC WITH ELECTRONIC DIFF [HEME] Stat Lab 01/26/17 16:21 Uncollected CK PROFILE [SP CHEM] Stat Lab 01/26/17 16:21 Uncollected COMPREHENSIVE METABOLIC PANEL [CHEM] Stat Lab 01/26/17 16:21 Uncollected MAGNESIUM [CHEM] Stat Lab 01/26/17 16:21 Uncollected PRO B-NATRIURETIC PEPTIDE Stat Lab 01/26/17 16:21 Uncollected PROTIME WITH INR [COAG] Stat Lab 01/26/17 16:21 Uncollected PTT [COAG] Stat Lab 01/26/17 16:21 Uncollected TROPONIN T Stat Lab 01/26/17 16:21 Uncollected EKG [EKG] Stat Ther 01/26/17 16:21 Ordered Result Diagrams: 01/26/17 17:34 01/26/17 17:34 - XRAY 1 XRAY Study: Chest Impression: See EMR Report - CONSULTS/PCP/HOSPITALIST Notification #1 *Consult/PCP/Hospitalist*: DR White Time Discussed: 19:30 Consult Disposition: Admit Departure - Departure Date of Disposition Decision: 01/26/17 Time of Disposition Decision: 19:30 DIAGNOSIS: Weakness, Abnormal EKG Hypotension Qualifiers: Hypotension type: unspecified hypotension type Qualified Code(s): I95.9 - Hypotension, unspecified Disposition: ADMITTED INPATIENT 09 Certified Medical Emergency: Emergent Condition: Fair - Critical Care Note This patient required my direct & personal management of CC.: No Comments: A 71 y/o F who was sent in from PCP with concerns of low BP, initial evalaution her BP was normal with labs no acute abnormality, repat BP was 77 SBP, strated on IV fluid bolus and admit to [facility], no signs of infection This chart was documented by the indicated scribe, (lAvino Pelaez Scribe) and accurately reflects the services I performed and decisions made by me, Dottie Whitehead MD, as attested by the provider's signature.
[2017-01-26 20:35] LABS: URINE MICRO REVIEW NEEDED? NO; URINE SOURCE CLEAN CATCH
[2017-01-26 20:40] LABS: BILIRUBIN URINE NEGATIVE (NEGATIVE); BLOOD URINE NEGATIVE (NEGATIVE); COLOR STRAW; GLUCOSE URINE NEGATIVE (NEGATIVE); LEUKOCYTES URINE NEGATIVE (NEGATIVE); NITRITE URINE NEGATIVE (NEGATIVE); PH URINE 6.5; PROTEIN URINE NEGATIVE (NEGATIVE); SP GRAVITY URINE 1.007; TURBIDITY URINE CLEAR (CLEAR); UROBILINOGEN URINE NORMAL (NORMAL)
[2017-01-26 20:42] LABS: UR EPITHELIAL CELLS <10 /HPF (<10); URINE BACTERIA NEGATIVE /HPF; URINE RBC <10 /HPF (<10); URINE WBC <10 /HPF (<10)
[2017-01-26] MEDS ORDERED: ZOFRAN IV PRN (21:29)
[2017-01-26] MEDS ORDERED: ROCEPHIN 1 GM/NS 1 GM/50 ML IVPB IV SCH (21:45)
[2017-01-26] MEDS: NS 1,000 ML IV SCH (23:25)
[2017-01-27 04:35] LABS: MANUAL DIFF NEEDED? NO
[2017-01-27 04:54] LABS: CALCIUM 8.6 mg/dL (8.8-10.2); POTASSIUM 4.5 mmol/L (3.5-5.1)
[2017-01-27 05:03] LABS: BASO% 0.5 % (0.0-0.8); EOS# 0.12 X1000 (0.0-0.7); EOS% 1.6 % (0.0-10.0); HEMATOCRIT 33.6 % (37.0-47.0); HEMOGLOBIN 10.7 g/dL (12.0-16.0); IMM GRAN# 0.06 X1000 (0.0-0.04); IMM GRAN% 0.8 % (0.0-0.5); LYMPH# 2.26 X1000 (1.2-3.4); LYMPH% 30.7 % (20.5-51.1); MCH 31.1 PG (27-31); MCHC 31.8 g/dL (33-37); MCV 97.7 FL (81-99); MONO# 0.89 X1000 (0.11-0.59); MONO% 12.1 % (1.7-9.3); MPV 9.7 FL (7.4-10.4); NEUT% 54.3 % (42.2-75.2); PLT 250 X1000 (130-400); RBC 3.44 XMIL (4.2-5.4)
[2017-01-27] MEDS: NS 1,000 ML IV SCH ×3 (06:02→22:00)
[2017-01-27] MEDS: SYNTHROID PO SCH (06:04)
--- NOTE | 2017-01-27 06:05 | Diag Imaging Result Doc PS360 ---
EXAM: HEAD W/O CONTRAST HISTORY: Unsteady gait,multiple falls,speech changes TECHNIQUE: CT brain without contrast. Dose reduction protocol. COMPARISON: 09/28/2016 FINDINGS: No parenchymal hemorrhage. No epidural or subdural hematoma. No subarachnoid hemorrhage. No mass identified on this noncontrasted exam. No hydrocephalus. There is moderate atrophy. No sinus opacification. IMPRESSION: No hemorrhage. There is atrophy similar to the prior exam. A preliminary report was given at 4:16 AM. Electronically signed by Baljinder Sanders 01/27/2017 6:03 AM
--- NOTE | 2017-01-27 06:09 | HISTORY AND PHYSICAL ---
PRIMARY CARE PHYSICIAN: Dr. Patsy Morejon. CHIEF COMPLAINT: Not feeling well, dizzy. 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 At that time, she states that her blood pressure was checked and was low. She subsequently went later in the day to her primary care physician who also found the same findings of low blood pressure and subsequently had sent the patient to the emergency department for further evaluation. The patient initially, when she presented, her blood pressure was 77/45. She was given IV fluid bolus. It was thought that she would need hospitalization and would be managed in the ICU. The patient states that recently she was having some symptoms of a cough and some dysuria. However, she had denied any headache, fever, chills, chest pain, shortness of breath, hemoptysis, or any weight changes but complained also of having some confusion and disorientation at times. PAST MEDICAL HISTORY: Includes IgE deficiency, fibromyalgia, hypertension, hyperlipidemia. PAST SURGICAL HISTORY: Hysterectomy, cholecystectomy, bilateral knee surgery, tonsillectomy, parotid gland resection, oophorectomy, and she has a PowerPort. ALLERGIES: Dilaudid, sulfa, Dyazide, and codeine. CURRENT MEDICATIONS: As listed on the medication reconciliation sheet. SOCIAL HISTORY: She denies any history of smoking, alcohol, or illicit drug use. FAMILY HISTORY: Positive for coronary artery disease in her father. REVIEW OF SYSTEMS: Twelve point review of systems as listed in the HPI. Other systems negative. PHYSICAL EXAMINATION: GENERAL: Cooperative, friendly, obese female. She is resting comfortably now. VITAL SIGNS: Temperature 97.3 degrees, pulse 66, respirations 16, blood pressure is 77/45. HEENT: Atraumatic, normocephalic. Extraocular movements intact. PERRLA. NECK: No masses. CHEST: Clear to auscultation. CARDIOVASCULAR: Regular rate and rhythm. ABDOMEN: Soft, obese. Positive bowel sounds. EXTREMITIES: Trace edema. NEUROLOGIC: She is awake, alert, oriented x3. : No bladder distention. SKIN: Warm. LABORATORIES AND STUDIES: WBCs 9.17, hemoglobin 11.1, hematocrit 35, platelets 271,000. Sodium 139, potassium 4.6, chloride 98, CO2 is 25, BUN is 38, creatinine is 2, glucose is 100. Troponin is 0.01. ASSESSMENT: A 71-year-old female with a history of IgE deficiency, fibromyalgia, and hypertension who had presented to the emergency department due to patient having a low blood pressure and not feeling well. She was evaluated in the emergency room. She was found to have a low blood pressure, systolic of 77. Subsequently, she will be admitted to the intensive care unit for further evaluation and management. 1. Hypotension. 2. Suspected systemic inflammatory response syndrome with patient having periods of confusion and being hypotensive. 3. Acute renal failure. 4. IgE deficiency. PLAN: 1. We will admit patient to ICU. 2. We will continue with IV fluid and also consider pressors if no improvement. 3. We will check blood cultures and start patient on empiric antibiotics. 4. We will monitor her renal function. 5. Consult her oncologist for her IgE deficiency. 6. We will put patient on DVT prophylaxis with SCDs. 7. We will continue to follow and reassess. cc: Salvador White MD
[2017-01-27] MEDS: PEPCID PO SCH (08:56)
[2017-01-27] MEDS: TRICOR PO SCH (08:57)
[2017-01-27] MEDS: PRAVACHOL PO SCH (08:57)
[2017-01-27] MEDS: MIRAPEX PO SCH ×2 (08:57→23:10)
[2017-01-27] MEDS ORDERED: NORCO-5 PO PRN (10:46)
[2017-01-27] MEDS ORDERED: ATIVAN IV ONE (11:13)
--- NOTE | 2017-01-27 12:25 | Diag Imaging Result Doc PS360 ---
EXAM: KNEE 1-2 VIEWS-LEFT HISTORY: arthritis TECHNIQUE: Two views COMPARISON: None. FINDINGS: No fracture. No dislocation. There is patellar bone spurring. Minimal joint space narrowing. There is a smaller bone spur to the lateral femoral condyle. IMPRESSION: Mild arthritic changes. Electronically signed by Baljinder Sanders 01/27/2017 12:23 PM
--- NOTE | 2017-01-27 12:33 | Diag Imaging Result Doc PS360 ---
EXAM: KNEE 1-2 VIEWS-RIGHT HISTORY: arthritis TECHNIQUE: Two views COMPARISON: None. FINDINGS: No fracture. No dislocation. There is lateral joint space narrowing with bone spurring to the lateral femoral condyle and tibial plateau. There is also patellofemoral joint space narrowing with patellar bone spurring. IMPRESSION: Moderate arthritic changes. Electronically signed by Baljinder Sanders 01/27/2017 12:31 PM
--- NOTE | 2017-01-27 12:36 | Diag Imaging Result Doc PS360 ---
EXAM: CT THORAX W/O CONTRAST HISTORY: rule out pna TECHNIQUE: CT chest without contrast. Dose reduction protocol. COMPARISON: 10/20/2016. FINDINGS: No pleural effusions. Heart is borderline mildly prominent. There are multiple calcified left hilar lymph nodes and there is a calcified granuloma in the mid left lung. No consolidation. The appearance of the lung parenchyma is quite similar to that of the prior exam. No consolidation. Minimal atelectasis or scarring in the left base. Tiny pleural-based nodular density laterally in the lower left lung image 56 is unchanged. Tiny nodular density in the mid right lung on image 42 is unchanged no change in the right-sided portacatheter. No pneumothorax. IMPRESSION: Stable chest. Electronically signed by Baljinder Sanders 01/27/2017 12:34 PM
[2017-01-27] MEDS: ZOSYN 3.375 GM/NS 3.375 GM/50 ML IVPB IV SCH ×2 (12:47→18:00)
--- NOTE | 2017-01-27 13:03 | Diag Imaging Result Doc PS360 ---
EXAM: MRI BRAIN W/O CONTRAST HISTORY: recurrent falls TECHNIQUE: Axial, sagittal, and coronal images obtained in multiple sequences. COMPARISON: 12/30/2011. FINDINGS: No definite interval change in the small right parafalcine meningioma. No recent infarct. There is diffuse atrophy. No microvascular ischemic changes. No midline shift. No hydrocephalus. No sinus opacification. IMPRESSION: 1. Stable small right sided meningioma 2. Atrophy 3. No acute infarct Electronically signed by Baljinder Sanders 01/27/2017 1:01 PM
[2017-01-27] MEDS: GEODON IM PRN (14:19)
[2017-01-27] MEDS: STERILE WATER INJ. INJ PRN (14:19)
--- NOTE | 2017-01-27 14:24 | PROGRESS NOTE ---
DATE: 01/27/2017 SUBJECTIVE: Patient reports feeling fine. Alert, awake.Vital Signs: Temperature 97.8 degrees, heart rate 68, respiratory rate 17, blood pressure 102/48, O2 saturation 98% on room air. General Examination: This is a 71-year-old female lying in bed, in no acute distress. HEENT: Head is normocephalic, atraumatic. Anicteric sclerae and pale conjunctivae. Mucous membranes moist. Neck: Supple. No JVD. No carotid bruits. No lymphadenopathy. No thyromegaly. Cardiovascular: S1, S2 heard. No murmurs, gallops, or rubs. Regular rate and rhythm. Respiratory: Clear bilaterally to auscultation. No work of breathing or using accessory muscles. Abdomen: Soft, nontender to palpation. Bowel sounds present. No organomegaly. Extremities: No clubbing, cyanosis, or edema. Peripheral pulses present in both legs. Neurological: Patient is awake, alert and oriented x3. Moves 4 extremities. LABORATORY DATA: White cell count 7.7 with hemoglobin 10.7, hematocrit 33.6, platelets 250,000. BMP shows creatinine 1.6 and BUN 34. ASSESSMENT/PLAN: 1. Hypotension. At this point, we do not know if this patient had this problem because of an infection. In any case, at admission she was started on ceftriaxone. The patient is alert, awake. Blood pressure is between 100 and 110 with IV fluids. The patient reports that she was having some cough during the last previous days. At this point, we are going to order a CT of the chest without contrast. Considering this history of recurrent falls and feeling weak all over I prefer to check an MRI of the brain. 2. Acute renal failure. The patient is responding to the IV fluids and creatinine is getting better. We will continue checking CBC. 3. History of bilateral knee pain. We are going to check an x-ray to see if there is any arthritis on this patient. 4. IgE deficiency. Patient is being followed with Dr. Alvares in the office and he has been consulted. We will follow his recommendations. Overall this patient is doing good. Because the blood pressure is fine and we are not using any vasodepressor or any overt critical measures we are going to transfer her out of the unit today. cc: Arian Whitaker MD
[2017-01-27] MEDS: DEPAKOTE PO SCH (22:00)
[2017-01-27] MEDS: PAXIL PO SCH (23:07)
[2017-01-27] MEDS: NEURONTIN PO SCH (23:09)
[2017-01-27] MEDS: ELAVIL PO SCH (23:10)
[2017-01-28] MEDS: ZOSYN 3.375 GM/NS 3.375 GM/50 ML IVPB IV SCH ×4 (01:00→17:05)
[2017-01-28] MEDS: GEODON IM PRN (01:17)
[2017-01-28] MEDS: STERILE WATER INJ. INJ PRN (01:17)
[2017-01-28] MEDS ORDERED: VANCOMYCIN IV PER PHARMACY MISC SCH (04:00)
[2017-01-28] MEDS ORDERED: VANCOMYCIN 1,800 MG in NS 250 ML IV SCH (05:00)
[2017-01-28] MEDS: SYNTHROID PO SCH (06:29)
[2017-01-28 06:56] LABS: MANUAL DIFF NEEDED? NO
[2017-01-28 07:22] LABS: CALCIUM 8.7 mg/dL (8.8-10.2); POTASSIUM 4.7 mmol/L (3.5-5.1)
[2017-01-28 07:23] LABS: BASO% 0.3 % (0.0-0.8); EOS# 0.14 X1000 (0.0-0.7); EOS% 2.1 % (0.0-10.0); HEMATOCRIT 30.8 % (37.0-47.0); HEMOGLOBIN 9.5 g/dL (12.0-16.0); IMM GRAN# 0.04 X1000 (0.0-0.04); IMM GRAN% 0.6 % (0.0-0.5); LYMPH# 2.03 X1000 (1.2-3.4); MCH 30.6 PG (27-31); MCHC 30.8 g/dL (33-37); MCV 99.4 FL (81-99); MONO% 10.7 % (1.7-9.3); MPV 9.8 FL (7.4-10.4); NEUT% 55.3 % (42.2-75.2); PLT 222 X1000 (130-400)
[2017-01-28] MEDS: PRAVACHOL PO SCH (09:35)
[2017-01-28] MEDS: SINGULAIR PO SCH (09:35)
[2017-01-28] MEDS: MIRAPEX PO SCH ×2 (09:35→21:20)
[2017-01-28] MEDS: TRICOR PO SCH (09:35)
[2017-01-28] MEDS: NEURONTIN PO SCH ×2 (09:35→21:00)
[2017-01-28] MEDS: PEPCID PO SCH (09:35)
[2017-01-28] MEDS: FLONASE NAS SCH (09:36)
[2017-01-28] MEDS: NS 1,000 ML IV SCH ×2 (10:47→16:46)
--- NOTE | 2017-01-28 15:20 | PROGRESS NOTE ---
DATE: 01/28/2017 SUBJECTIVE: Patient reports feeling fine. As per nursing staff, he was having some confusion yesterday after the MRI when she received Ativan 1 dose 1 mg and she was more sleepy yesterday. Today, she is feeling fine. OBJECTIVE: Vital Signs: Temperature 97.6 degrees, heart rate 87, respiratory rate 20, blood pressure 107/53, O2 saturation 97% on room air. General: This is a 71-year-old, female, lying in bed in no acute distress. HEENT: Head is normocephalic, atraumatic. Anicteric sclerae and pale conjunctivae. Mucous membranes moist. Neck: Supple. No JVD noted. No carotid bruits. No lymphadenopathy. No thyromegaly. Cardiovascular: S1-S2 heard. No murmurs, gallops, or rubs. Regular rate and rhythm. Respiratory: Clear bilaterally to auscultation. No work of breathing or using accessory muscles. Abdomen is soft, nontender to palpation. Bowel sounds present. No organomegaly. Extremities: No clubbing, cyanosis, or edema. Peripheral pulses present in both legs. Neurological. Patient alert and oriented x3. Able to move her extremities. Cranial nerves 2-12 grossly normal. LABORATORY DATA: White cell count 6.54, hemoglobin 9.5, hematocrit 30.8, platelets of 222,000. Renal function is 1.3. ASSESSMENT AND PLAN: 1. Hypotension. At this point, the blood pressure is fine. We have ruled out any infection. Blood cultures are so far negative. Because of suspicion for possible acute coronary syndrome, we have checked troponins which were negative as well as the EKG. At this point, this patient is with normal saline at 125 mL/hour. We are going to reduce the rate to 50 and will see how this patient does. Urine culture also returned negative. 2. Acute renal failure. I guess this is because of dehydration and this continues to improve. We will continue checking BMP daily. 3. History of bilateral knee pain as per patient request, we have ordered an x-ray of both knees and dose returned with some osteoarthritic changes. 4. IgE deficiency. The patient is to follow along with Dr. Alvares. He has been consulted. 5. Physical deconditioning. Patient reports that she has been feeling weak for a while. I think this patient will need rehab facility. PT was consulted and also, social service assistant, as well. cc: Arian Whitaker MD
--- NOTE | 2017-01-28 15:27 | CONSULTATION ---
DATE OF CONSULTATION: 01/27/2017 ADMITTING PHYSICIAN: Dr. Salvador White. REQUESTING PHYSICIAN: Dr. Salvador White. We appreciate this consult. CHIEF COMPLAINT: IgG deficiency. HISTORY OF PRESENT ILLNESS: Ms. 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 She is status post Octagam on 12/30/2016 and was scheduled for her next infusion today. The patient reports that she presented to [facility] for assessment of laboratory data and preparation for IgG tomorrow. Her blood pressure was found to be 103 systolic. She reported that she felt fatigued, but denied any other significant complaints at that time. She thereafter presented to her family care physician later in the afternoon was found to have a systolic blood pressure of 77. The patient was given an IV fluid bolus and directed to present to [facility] Emergency Department where she was evaluated and admitted for hypotension. The patient denied any headache, fever, chills, chest pain, shortness of breath, hemoptysis or confusion at that time. We are consulted for known IgG deficiency. PAST MEDICAL HISTORY: 1. IgG deficiency. 2. Fibromyalgia. 3. Hypertension. 4. Hyperlipidemia. PAST SURGICAL HISTORY: 1. Hysterectomy. 2. Cholecystectomy. 3. Bilateral knee surgery. 4. Tonsillectomy. 5. Parotid gland resection. 6. Oophorectomy. 7. PowerPort placement. FAMILY HISTORY: Negative for any hematologic or oncologic problems. SOCIAL HISTORY: The patient has a history of smoking. She denies alcohol or illicit drug use. MEDICATIONS ON ADMISSION: Medication reconciliation is currently pending. ALLERGIES: Dilaudid. Sulfide. Dyazide. Codeine. REVIEW OF SYSTEMS: A 14-point review of systems was obtained and is negative except as mentioned in HPI. PHYSICAL EXAMINATION: General: Ms. Gardner is a 71-year-old, female, lying supine in bed in no immediate distress. Vital Signs: Temperature 97.8 degrees, blood pressure 102/48, heart rate 68, respirations are 17, O2 saturation is 98% on room air. HEENT: Normocephalic, atraumatic. Mucous membranes are slightly pale and moist. Sclerae is anicteric. Extraocular movements intact. Neck: Supple. Lungs: Clear to auscultation bilaterally. Chest expansion is equal bilaterally. CARDIOVASCULAR: S1, S2 is heard without murmur rub or gallop. Abdomen: Soft, nondistended, nontender. Bowel sounds positive all quadrants. No rebound or guarding noted. Extremities: Without clubbing, cyanosis, or edema. Dermatologic: No rashes, bruises or lesions. Neurologic: The patient is awake, alert, and oriented x3. She has no focal deficit at this time. LABORATORY DATA: Hemoglobin 10.7, hematocrit 33.6, white blood cell count 7.37, platelets 250,000. Sodium 145, potassium 4.5, chloride 104, CO2 is 27, BUN 34, creatinine 1.6, glucose 102, calcium is 8.6. Urinalysis is negative for UTI. IMAGING STUDIES: CT of the head is negative for acute abnormality. ASSESSMENT AND PLAN: 1. IgG deficiency. The patient is status post infusion of Octagam on 12/30/2016 and was actually scheduled for her next infusion today. We will delay infusion until the patient's acute illness passes. 2. Hypotension. Currently with a blood pressure of 102/48. The patient is status post IV fluid resuscitation. 3. Suspected systemic inflammatory response syndrome. Blood cultures are currently pending. The patient is on empiric antibiotic at this time. 4. Acute renal failure. Creatinine is improved to 1.6. We will continue to follow CMP. 5. We will follow along with you and make further recommendations pending outcomes. The above reflects the history, examination, assessment and plan of Dr. Alvares. Dictated by KESHAWN Gonsalves for Lorenzo Alvares MD cc: KESHAWN Gonsalves MD
--- NOTE | 2017-01-28 19:00 | Diag Imaging Result Doc PS360 ---
EXAM: ABDOMEN/PELVIS W/O CONTRAST HISTORY: sudden onset abdominal pain TECHNIQUE: CT urogram without contrast COMMENT: The atelectatic changes present in the lung bases at the time the previous study of 09/29/2016 have largely resolved. There is some residual fibrosis in the left lower lobe. There is what appears to be a cyst arising from the lateral lower pole of the left kidney. There is also an apparent subcapsular fluid collection around the left kidney which may be due to hemorrhage. This was not present at the time the previous study. There is a 2 mm calculus in the upper pole of the right collecting system. There are no apparent stones on the left. No evidence of hydronephrosis is present. There is no evidence of ureterolithiasis. The appendix is normal in caliber. There is some retained hyperdense material in the appendix there is been cholecystectomy. IMPRESSION: Right nonobstructive nephrolithiasis. Left renal subcapsular hematoma. Electronically signed by Carlito Garcia 01/28/2017 6:58 PM
[2017-01-28] MEDS: PAXIL PO SCH (21:00)
[2017-01-28] MEDS: DEPAKOTE PO SCH (21:20)
[2017-01-28] MEDS: ELAVIL PO SCH (21:20)
[2017-01-29] MEDS: ZOSYN 3.375 GM/NS 3.375 GM/50 ML IVPB IV SCH ×4 (00:30→19:11)
[2017-01-29 06:00] LABS: MANUAL DIFF NEEDED? NO
[2017-01-29 06:01] LABS: BASO% 0.5 % (0.0-0.8); EOS# 0.17 X1000 (0.0-0.7); EOS% 2.3 % (0.0-10.0); HEMATOCRIT 33.2 % (37.0-47.0); HEMOGLOBIN 10.5 g/dL (12.0-16.0); IMM GRAN# 0.03 X1000 (0.0-0.04); IMM GRAN% 0.4 % (0.0-0.5); LYMPH# 2.47 X1000 (1.2-3.4); LYMPH% 33.7 % (20.5-51.1); MCH 31.3 PG (27-31); MCHC 31.6 g/dL (33-37); MCV 98.8 FL (81-99); MONO# 0.71 X1000 (0.11-0.59); MONO% 9.7 % (1.7-9.3); MPV 9.7 FL (7.4-10.4); NEUT% 53.4 % (42.2-75.2); PLT 232 X1000 (130-400); RBC 3.36 XMIL (4.2-5.4)
[2017-01-29 06:25] LABS: CALCIUM 9.1 mg/dL (8.8-10.2); POTASSIUM 4.2 mmol/L (3.5-5.1)
[2017-01-29] MEDS: SYNTHROID PO SCH (06:28)
--- NOTE | 2017-01-29 07:05 | EKG Report ---
Test Performed on : 01/28/2017 6:08:46 PM Test Reason : chest pain Blood Pressure : / mmHG Vent. Rate : 120 BPM Atrial Rate : 125 BPM P-R Int : 000 ms QRS Dur : 072 ms QT Int : 404 ms P-R-T Axes : 000 -01 065 degrees QTc Int : 570 ms Accelerated Junctional rhythm. Low voltage QRS Cannot rule out Inferior infarct (cited on or before 28-SEP-2016) Possible Anterolateral infarct (cited on or before 28-SEP-2016) Prolonged QT Abnormal ECG When compared with ECG of 26-JAN-2017 17:50, (Unconfirmed) Junctional rhythm. has replaced Sinus rhythm. Vent. rate has increased BY 61 BPM Questionable change in initial forces of Anterolateral leads Nonspecific T wave abnormality now evident in Lateral leads Confirmed by Anita Bourgeois MD ([id number]) on 01/29/2017 1:09:59 PM
[2017-01-29] MEDS: PEPCID PO SCH (09:57)
[2017-01-29] MEDS: PRAVACHOL PO SCH (09:57)
[2017-01-29] MEDS: MIRAPEX PO SCH (09:57)
[2017-01-29] MEDS: TRICOR PO SCH (09:57)
[2017-01-29] MEDS: NEURONTIN PO SCH (09:57)
[2017-01-29] MEDS: SINGULAIR PO SCH (09:57)
[2017-01-29] MEDS: FLONASE NAS SCH (09:57)
--- NOTE | 2017-01-29 11:25 | DISCHARGE SUMMARY ---
ADMISSION DATE: 01/26/2017 DISCHARGE DATE: 01/29/2017 DISCHARGE DIAGNOSES: 1. Hypotension resolved. 2. Acute kidney injury resolved. 3. Mild bilateral knee osteoarthritis. 4. IgE deficiency. 5. Physical deconditioning. CONSULTATIONS: Dr. Alvares from Hematology/Oncology. PROCEDURES: 1. Head CT done on admission showed no hemorrhage. There is atrophy similar to her prior exam. 2. Brain MRI without contrast showed stable small right-sided meningioma that was known to the patient, atrophy and no acute infarct. 3. Chest CT showed stable chest. 4. Abdomen and pelvis CT showed right nonobstructive nephrolithiasis and left renal subcapsular hematoma. HOSPITAL COURSE: This is a 71-year-old female with past medical history of IgE deficiency, fibromyalgia and hypertension, who was admitted to the hospital because of abnormal labs. Patient was sent over here and she was found to be hypotensive. We suspect an infection so we ordered blood cultures, urine culture. She was initially on antibiotics with Zosyn and gabapentin p.o. Those exams returned normal. Also because this patient reports some confusion we preferred to do an MRI of the brain to rule out any stroke and that returned normal. For IgE deficiency we have consulted Dr. Alvares who has recommended to provide 1 dose of this medication before she leaves. Patient after the second day of hospitalization she was doing good. Blood pressure keeps above 100 all the time. The patient was started progressively on all her usual medications. Because of abdominal pain we ordered a CT of the abdomen which shows nonobstructive kidney stone as we mentioned before. By now, the patient is doing good but feeling very weak so she is going to be discharged in stable condition to rehab facility. DISCHARGE PHYSICAL EXAMINATION: Vitals: Temperature 97.4 degrees, heart rate 98, respiratory rate 16, blood pressure 128/79, O2 saturation 97% on room air. General examination: This is a 71-year-old female lying in bed, in no acute distress. HEENT: Head is normocephalic, atraumatic. Anicteric sclerae and pale conjunctivae. Mucous membranes moist. Neck: Supple. No JVD noted. No carotid bruits. No lymphadenopathy. No thyromegaly. Cardiovascular: S1, S2 heard. No murmurs, gallops, or rubs. Regular rate and rhythm. Respiratory: Clear bilaterally to auscultation. No work of breathing or using accessory muscles. Abdomen: Soft, nontender to palpation. Bowel sounds present. No organomegaly. Extremities: No clubbing, cyanosis, or edema. Peripheral pulses present in both legs. Neurological: Patient is alert and oriented x3. Moves 4 extremities. Cranial nerves 2-12 grossly normal. DISCHARGE DISPOSITION: The patient is going to rehab facility. LIST OF MEDICATIONS: 1. Singular 10 mg 1 tablet p.o. daily. 2. Meloxicam 7.5 mg 1 tablet p.o. daily as needed for pain. 3. Lisinopril 20 mg 1 tablet daily. 4. Pravastatin 10 mg 1 tablet p.o. daily. 5. Furosemide 40 mg p.o. b.i.d. 6. Zantac 150 mg 1 tablet p.o. daily. 7. Amitriptyline 10 mg 1 tablet p.o. daily. 8. Levothyroxine 50 mcg 1 tablet p.o. daily. 9. Methocarbamol 500 mg twice daily. 10. Depakote 500 mg p.o. at bedtime. 11. Mirapex 1 tablet p.o. daily. 12. Paroxetine 30 mg p.o. at bedtime. 13. Fenofibrate 48 mg p.o. daily. 14. Metronidazole 1 application topically twice daily. 15. Fluticasone 2 sprays in each nausea daily. 16. Valium 5 mg 1 tablet p.o. daily as needed. 17. [place] 10 1 tablet p.o. every 8 hours as needed. 18. Gabapentin 300 mg p.o. b.i.d. Discharge time 35 minutes. FOLLOW UP: With primary care physician in 4 weeks. cc: Arian Whitaker MD
[2017-01-29] MEDS: NS 1,000 ML IV SCH (12:19)
[2017-01-29] MEDS ORDERED: SODIUM CHLORIDE 0.9% INJ ONE (12:30)
[2017-01-29] MEDS ORDERED: KYTRIL IV ONE (12:30)
[2017-01-29] MEDS ORDERED: PEPCID IV ONE (12:30)
[2017-01-29] MEDS ORDERED: TYLENOL PO ONE (12:30)
[2017-01-29] MEDS ORDERED: CYANOCOBALAMIN IM ONE (12:30)
[2017-01-29] MEDS ORDERED: OCTAGAM IV ONE (13:00)
[2017-01-29] MEDS ORDERED: DILUENT IV ONE (13:00)
[2017-01-29] MEDS ORDERED: [UNRECOGNIZED DRUG - OTHER] IV ONE (13:00)
[2017-01-29 15:58] VITALS: BP 119/71
--- NOTE | 2017-01-29 19:27 | ECHO REPORT ---
ORDER DATE: 01/28/2017 ECHOCARDIOGRAM: MEASUREMENTS: Left ventricular end-diastolic diameter 3.7, end systolic diameter 2.1, septal thickness 1.0, posterior wall thickness 1.0, left atrium 4.0, aortic root 2.4. SUMMARY: 1. Technically difficult study due to limited acoustic window quality. 2. Aortic, mitral, tricuspid, and pulmonic valves are without evidence of structural abnormality. There is trace tricuspid regurgitation. The aortic root is normal in size. 3. Normal left ventricular dimensions suggested. Estimated left ventricular ejection fraction appears to be at least 70%. No regional wall motion abnormalities are evident. Doppler suggests grade 1 left ventricular diastolic dysfunction. Left atrium is borderline enlarged. Right atrium and right ventricle normal size with normal right ventricular systolic function. 4. No pericardial effusion. 5. Inferior vena cava not well demonstrated. CONCLUSIONS: 1. Technically difficult study. 2. No significant valvular abnormality. 3. Estimated left ejection fraction greater than 70%. 4. Grade 1 left ventricular diastolic dysfunction suggested. 5. Borderline left atrial enlargement. cc: Sergio Allison MD
== END 2017-01-29 20:21 ==
LOC: ED 16:10 → SUATTDRO 19:53 → ICU 19:53 → 3N 01-27 17:35
PROVIDERS: ATTEND Internal Medicine